=== PATIENT | female | born 1985 | race Caucasian/White ===

== ENCOUNTER → 2024-12-13 08:02 | Outpatient (REF) | payer OTHER, SELFPAY | LOC: RAD 08:02 | PROVIDERS: ATTENDING PHYSICIAN Student in an Organized Health Care Education/Training Program | DX: I73.00 Raynaud's syndrome without gangrene (principal) | CPT/HCPCS: 93922; 93925 ==

== ENCOUNTER → 2025-04-21 09:46 | Outpatient (REF) | payer OTHER, SELFPAY | LOC: WDC 09:46 | PROVIDERS: ATTENDING PHYSICIAN Advanced Practice Midwife | DX: N63.11 Unspecified lump in the right breast, upper outer quadrant (principal) | CPT/HCPCS: 76642; 77062; 77066 ==

== ENCOUNTER → 2025-05-20 16:39 | Outpatient (REF) | payer OTHER, SELFPAY | LOC: MRI 3T 16:39 | PROVIDERS: ATTENDING PHYSICIAN Surgery; FAMILY PHYSICIAN Student in an Organized Health Care Education/Training Program | DX: R92.30 Dense breasts, unspecified (principal); Z80.3 Family history of malignant neoplasm of breast | CPT/HCPCS: 77049; A9585 ==

== ENCOUNTER → 2025-06-02 08:53 | Outpatient (REF) | payer OTHER, SELFPAY ==
--- NOTE | 2025-06-02 13:32 | OID.BR.INTR ---
PREETHID Breast Navigator - Initial
- -
Date of Contact: 06/02/25
Met with patient. Patient given written information on navigator services available at [facility]. Will follow up as needed per protocol.
== END ==
LOC: WDC 08:53
PROVIDERS: ATTENDING PHYSICIAN Surgery
DX: R92.8 Other abnormal and inconclusive findings on diagnostic imaging of breast (principal)
CPT/HCPCS: 19083; 88305; 88341; 88342; 88360; A4648

== ENCOUNTER → 2025-07-07 09:40 | Outpatient (REF) | payer OTHER, SELFPAY | LOC: WDC 09:40 | PROVIDERS: ATTENDING PHYSICIAN Surgery Plastic and Reconstructive Surgery; FAMILY PHYSICIAN Student in an Organized Health Care Education/Training Program | DX: N63.10 Unspecified lump in the right breast, unspecified quadrant (principal); Z85.3 Personal history of malignant neoplasm of breast; D05.11 Intraductal carcinoma in situ of right breast; N63.41 Unspecified lump in right breast, subareolar | CPT/HCPCS: 76642 ==

== ENCOUNTER → 2025-07-21 08:58 | Outpatient (REF) | payer OTHER, SELFPAY | LOC: WDC 08:58 | PROVIDERS: ATTENDING PHYSICIAN Surgery | DX: D05.11 Intraductal carcinoma in situ of right breast (principal) | CPT/HCPCS: 38792; 76942; A9541 ==

== ENCOUNTER 2025-07-22 12:33 | Inpatient (IN) | payer OTHER, SELFPAY ==
[2025-07-15 09:29] LABS: Hematocrit 38.9 % (37.0-47.0); Hemoglobin 12.9 g/dL (12.0-16.0); Mean Corp Hgb Conc. 33.2 g/dL (33.0-37.0); Mean Corpuscular Volume 88.8 fL (81.0-99.0); Nucleated Red Blood Cells % 0 %; Platelet Count 215 10^3/uL (130-400); Red Cell Dist. Width 12.7 % (11.5-14.5)
[2025-07-15 10:01] LABS: ALT (SGPT) 20 U/L (0-35); AST (SGOT) 22 U/L (14-36); Albumin 4.8 g/dl (3.5-5.0); Alkaline Phosphatase 70 U/L (38-126); Blood Urea Nitrogen 12 mg/dl (7-17); Calcium 9.9 mg/dl (8.4-10.2); Carbon Dioxide 27 mmol/L (22-30); Chloride 105 mmol/L (98-107); Glucose 76 mg/dl (70-99); Potassium 4.2 mmol/L (3.5-5.1); Sodium 140 mmol/L (135-145); Total Protein 7.6 g/dl (6.3-8.2); eGFR > 60.00
[2025-07-15 10:07] LABS: Prealbumin (Transthyretin) 20.8 mg/dl (17.6-36.0)
[2025-07-15 10:19] LABS: Vitamin D, 25-OH*** 44.2 ng/mL (30-80)
[2025-07-15 14:09] VITALS: BMI 21.4
[2025-07-22] VITALS (12 sets, daily range): BP systolic 0–131; BP diastolic 71–102; BMI 21.4
[2025-07-22] MEDS: NORMOSOL-R/PLASMALYTE-A 1000 IV (12:49)
[2025-07-22] MEDS: EMEND 40 MG PO (12:49)
--- NOTE | 2025-07-22 14:45 | W.SUR.PREOP ---
Pre-Operative Surgical Note
-
I have examined this patient prior to the performance of the scheduled procedure.
The patient's condition is unchanged from the time of the current History and
Physical and the patient is able to undergo the scheduled procedure.
--- NOTE | 2025-07-22 17:42 | W.IMMPOSTOP ---
Surgical Immed Post Op Note
-
Primary Surgeon: Elizabeth
Assisting Surgeon: None
Pre-op Diagnosis: Right breast DCIS
Post-op Diagnosis: Same
Procedure Performed: Bilateral mastectomies, right sentinel lymph node mapping and biopsy
Anesthesia Type: GET
Specimen / Cultures: Bilateral breasts, bilateral retroareolar buttons, right sentinel nodes, two periareolar nodules, additional subcutaneous tissue 12:00
Estimated Blood Loss: 200cc
Complications: None
Operative Findings: positive right retroareolar button
--- NOTE | 2025-07-22 17:48 | OR.RPT ---
Operative Report
Operative Report
Date of surgery: 07/22/2025
Procedure: Bilateral mastectomies, right sentinel lymph node mapping and biopsy
Preoperative diagnosis: Right breast DCIS
Postoperative diagnosis: Same
Surgeon Elizabeth
The patient is a 40-year-old female who had presented with spontaneous bloody right nipple discharge. Traditional imaging was negative and after ordering an MRI leading to biopsy she was found to have extensive DCIS of the right breast. She
presents for bilateral mastectomies and right sentinel lymph node mapping and biopsy. She will undergo immediate reconstruction by Dr. Biggs.
On the day prior to the procedure the patient presented to the [facility] where technetium radiotracer was injected into the right breast parenchyma. On the day of surgery she presented to the same-day surgical service unit where she was
prepped. DVT and antibiotic prophylaxis were provided and plastic surgery had marked her inframammary incisions as nipple sparing mastectomies were planned. She was taken to the operating room and in the supine position general anesthesia was
induced. Meléndez catheter was inserted using aseptic technique and both breasts and upper abdomen were prepped and draped in usual sterile fashion. An appropriate timeout was performed by all team members
Attention was first turned to the left breast where the inframammary incision was entered sharply with the blade. Breast was elevated off the pectoral muscle and wall using the PlasmaBlade and in view of the lighted retractor. Larger vessels were
controlled with 3-0 silk tie or suture ligature. Skin the subcutaneous tissue were elevated off the breast again using a PlasmaBlade and lighted retractor. Once the breast tissue was dissected off the skin of the nipple the retroareolar button was
sent for touch prep analysis and was negative. Dissection was carried down to the pectoral wall superiorly and the breast was taken off the chest. Time out of body was noted and the specimen was oriented for the pathologist. Moist pack was placed
and we proceeded to the right side. Plastic surgery entered to begin the reconstructive portion of the procedure. In a similar fashion the right breast was approached. The retroareolar button on this side was positive for DCIS therefore plastic
surgery will excise the nipple and reconstructed at a later time. There were 2 additional periareolar nodules that were taken inset under separate cover and found to be consistent with DCIS. Once this breast was taken off and oriented the cyst
axillary region was entered by incising clavipectoral fascia. Using palpation and the gamma probe 3 sentinel node packets were encountered and removed by clamping and tying feeding vessels. After their removal there is a greater than fourfold
reduction of background count. Hemostasis was verified and a moist pack was placed. Plastic surgery continued with the reconstructive portion of the procedure
At this juncture all sponge needle and instrument counts were correct
([id number])
--- NOTE | 2025-07-22 18:36 | W.IMMPOSTOP ---
Surgical Immed Post Op Note
-
Primary Surgeon:
Assisting Surgeon:
Pre-op Diagnosis:
Post-op Diagnosis:
Procedure Performed:
Anesthesia Type:
Specimen / Cultures:
Estimated Blood Loss:
Complications:
Operative Findings:
[2025-07-22] MEDS: ZOFRAN 4 MG IV (18:49)
[2025-07-22] MEDS: COMPAZINE 5 MG IV (19:00)
[2025-07-22] MEDS: DILAUDID 0.25 MG IV (19:17)
[2025-07-22] MEDS: D5/0.45%NSS with KCL 20 MEQ 1000 IV (19:49)
--- NOTE | 2025-07-22 20:30 | PTCARENOTE ---
Rec'd patient from PACU. AAOx3 Stable vitals. Drowsy.pain 0/10. Dressing to Bilateral breast CDI with drains. POC reviewed with patient.
[2025-07-22] MEDS: NEURONTIN 300 MG PO (23:09)
[2025-07-22] MEDS: ANCEF 5 IV (23:09)
[2025-07-22] MEDS: TYLENOL 1000 MG PO (23:09)
[2025-07-23 01:57] VITALS: BP 104/76
[2025-07-23 04:07] VITALS: BP 96/65
[2025-07-23] MEDS: TYLENOL 1000 MG PO ×2 (05:06→11:59)
[2025-07-23] MEDS: D5/0.45%NSS with KCL 20 MEQ 1000 IV (05:06)
[2025-07-23 05:33] VITALS: BP 108/70
[2025-07-23 05:43] VITALS: BP 108/70
--- NOTE | 2025-07-23 06:16 | PTCARENOTE ---
Patient c/o right middle finger numbness this morning. Dr Johnson made aware. will elevate arm as per advise.
[2025-07-23 07:50] VITALS: BP 104/70
[2025-07-23 08:00] LABS: Hematocrit 26.4 % (37.0-47.0); Hemoglobin 9.1 g/dL (12.0-16.0)
[2025-07-23] MEDS: EFFEXOR XR 112.5 MG PO (08:03)
[2025-07-23] MEDS: NEURONTIN 300 MG PO (08:04)
[2025-07-23] MEDS: ANCEF 5 IV (08:04)
[2025-07-23 08:27] LABS: Blood Urea Nitrogen 8 mg/dl (7-17); Calcium 8.4 mg/dl (8.4-10.2); Carbon Dioxide 27 mmol/L (22-30); Chloride 106 mmol/L (98-107); Estimated Creatinine Clearance 92 ml/min; Glucose 121 mg/dl (70-99); Potassium 4.1 mmol/L (3.5-5.1); Sodium 136 mmol/L (135-145); eGFR > 60.00
--- NOTE | 2025-07-23 08:53 | PTCARENOTE ---
0800 [facility] held at present. Patient's BP 104/70. Patient states, 'My blood pressure is never that low.' SHARON drain stripping and emptying reviewed with patient. Patient demonstrated understanding.
[2025-07-23] MEDS: ROXICODONE 5 MG PO (09:54)
--- NOTE | 2025-07-23 11:22 | CM ---
Addendum entered by Mele Blas 07/23/25 12:14:
Discharge order noted.
Pt is aware.
Please fax discharge instructions to [facility] at [phone]
D/C plan: home with [facility] and family support. to transport.
Original Note:
CM following re: discharge planning.
Reviewed pt's chart, met with pt.
Pt is a 40 year old female, admitted with primary dx of POD#1 s/p Bilateral mastectomies, right sentinel lymph node mapping and biopsy.
Pt reports she lives with and 3 children 2SH, 4 steps to enter. 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
CM consulted to arrange [facility] services for drain care. CM discussed it with the pt, pt expressed her agreement and she stated she had before [facility] for her daughter and pt requested [facility]. A referral to [facility] made and it's confirmed that pt is accepted for
VN services.
PCP: Elvie Williamson
Pharmacy: [facility]
Please fax discharge instructions to [facility] at [phone]
D/C plan: home with [facility] and family support. to transport at discharge
CM will follwo with discharge plan updates as hospitalization progresses
[2025-07-23 11:40] VITALS: BP 123/75
[2025-07-23] MEDS: VALIUM 5 MG PO (11:59)
--- NOTE | 2025-07-23 11:59 | W.DCSUMMARY ---
Discharge Summary
Discharge Data
Date of Admission: 07/22/25
Date of Discharge: 07/23/25
Discharge Plan
-
Patient Disposition: Home (Routine Discharge)
Discharge Diagnosis/Procedures: s/p bilateral mastectomy and immediate reconstruction with tissue expanders
Condition: Good
Diet: No restrictions
Activity: No strenuous activity
Additional Activity: No heavy lifting >10lbs
Driving Restrictions: Not until seen by your Dr
Bathing Restrictions: OK to Shower
Other Services: [facility]N
Wound Care: Apply ABD pads over incisions, strip and record drain output twice daily
Referrals:
Elvie Williamson MD, Resident [Family Provider, General]
Prescriptions:
New
acetaminophen [Tylenol Extra Strength] 500 mg Tablet
1,000 mg PO Q6 30 Days Qty: 240 0RF
gabapentin 300 mg Capsule
300 mg PO TID 90 Days Qty: 270 0RF
oxycodone 5 mg Tablet
5 mg PO Q6HPRN PRN (Reason: breakthrough mod-severe pain) 14 Days Qty: 20 0RF
cefadroxil 500 mg capsule
500 mg PO BID Qty: 42 0RF
diazepam 5 mg tablet
5 mg PO TID Qty: 42 0RF
Continued
venlafaxine 75 MG capsule,extended release 24hr
112.5 mg PO DAILY
metronidazole 0.75 % Cream
1 applic TOPICAL DAILY
diltiazem HCl 30 mg Tablet
30 mg PO BID
tretinoin 0.05 % Cream
1 applic TOPICAL HS
Held
Wegovy 2.4 mg/0.75 mL Pen Injector
2.4 mg SC QWEEK
Hold Instructions: Resume on 08/04/25.
Rx Instructions:
Takes on Monday
Discontinued
ibuprofen 600 mg tablet
600 mg PO Q6H PRN (Reason: mild pain) Qty: 30 0RF
Rx Instructions:
ok to take with tylenol
amoxicillin-pot clavulanate [Augmentin] 875-125 mg Tablet
1 tab PO Q12H
Discharge Orders:
Discharge Patient (As Directed); Ordered 07/23/25
Ordered By: David Biggs
Discharge Date and Time
Print Language: GERMAN
--- NOTE | 2025-07-23 12:22 | VNURNOTE ---
Home Health Liaison met with patient at bedside to discuss [facility] nurse/therapy, visits, schedule and homebound status. Patient is agreeable and understands that visits at home will be 2-3 x per week to assess and teach medical and drain management.
Patient is aware that [facility] will contact them for start of care in 1-2 days after discharge from . Provided contact number for [facility].
[facility] referral completed in Care Port.
== END 2025-07-23 13:05 | disposition home health service (06) | DRG 581 ==
LOC: 2 SOUTH 12:33
PROVIDERS: ADMITTING PHYSICIAN Surgery Plastic and Reconstructive Surgery; ATTENDING PHYSICIAN Surgery; FAMILY PHYSICIAN Student in an Organized Health Care Education/Training Program
PROC: 07B50ZX Excision of Right Axillary Lymphatic, Open Approach, Diagnostic (ICD-10-PCS; 2025-07-22)
PROC: 0HTV0ZZ Resection of Bilateral Breast, Open Approach (ICD-10-PCS; 2025-07-22)
PROC: 0HRV0JZ Replacement of Bilateral Breast with Synthetic Substitute, Open Approach (ICD-10-PCS; 2025-07-22)
DX: D05.11 Intraductal carcinoma in situ of right breast (principal); I10 Essential (primary) hypertension; F41.1 Generalized anxiety disorder; F32.9 Major depressive disorder, single episode, unspecified; Z90.49 Acquired absence of other specified parts of digestive tract; E78.5 Hyperlipidemia, unspecified
CPT/HCPCS: 36415; 80048; 80053; 82306; 84134; 85014; 85018; 85025; 87070; 88305; 88307; 88333; 88342; 93005; A4648; C1789; L8000; P9045; Q4100